=== PATIENT | female | born 1990 ===

== ENCOUNTER 2016-08-30 14:00 | Inpatient (IN) | payer OTHER ==
[2016-08-30] VITALS (19 sets, daily range): BP systolic 106–148; BP diastolic 52–77
[~2016-08-30] VITALS: Ht 160 cm; Wt 105.0 kg
[2016-08-30] MEDS ORDERED: PRENTAB9 PO (14:31)
[2016-08-30] MEDS ORDERED: LR 1,000 ML IV SCH (15:00)
[2016-08-30] MEDS ORDERED: LACTATED RINGER'S 1000 ML IV STA (15:29)
[2016-08-30 15:55] LABS: MEAN CORPUSCULAR HEMOGLOBIN 26.7 pg (27.0-33.0); MEAN CORPUSCULAR HGB CONC 32.3 g/dl (32.0-36.5); MEAN CORPUSCULAR VOLUME 82.6 fl (80.0-96.0); RED CELL DISTRIBUTION WIDTH 15.2 % (11.5-14.5); WHITE BLOOD COUNT 8.6 K/mm3 (4.0-10.0)
[2016-08-30] MEDS ORDERED: OXYTOCIN 30 UNITS IN 0.9% NaCl 500ML IV BAG (J2590) As Ordered ONE (16:03)
[2016-08-30 16:14] LABS: ALBUMIN 2.3 GM/DL (3.2-5.2); ALKALINE PHOSPHATASE 135 U/L (45-117); ALT/SGPT 14 U/L (12-78); ANION GAP 9 MEQ/L (8-16); AST/SGOT 13 U/L (15-37); BILIRUBIN,TOTAL 0.2 MG/DL (0.2-1.0); BLOOD UREA NITROGEN 10 MG/DL (7-18); CALCIUM LEVEL 8.6 MG/DL (8.5-10.1); CARBON DIOXIDE LEVEL 23 MEQ/L (21-32); CHLORIDE LEVEL 108 MEQ/L (98-107); CREATININE FOR GFR 0.62 MG/DL (0.55-1.02); GLOMERULAR FILTRATION RATE > 60.0 (>60); GLUCOSE, FASTING 76 MG/DL (70-105); SODIUM LEVEL 140 MEQ/L (136-145); TOTAL PROTEIN 5.6 GM/DL (6.4-8.2); URIC ACID 3.2 MG/DL (2.6-6.0)
[2016-08-30] MEDS ORDERED: OXYTOCIN DRIP 30 UNITS in APPROPRIATE DILUENT 1 EA IV SCH ×2 (16:15→19:51)
[2016-08-30] MEDS ORDERED: METHYLERGONOVINE MALEATE 0.2 MG/ML VIAL (J2210) IM PRN (20:00)
[2016-08-30] MEDS ORDERED: ACETAMINOPHEN 500 MG TAB PO PRN (20:00)
[2016-08-30] MEDS ORDERED: ONDANSETRON 4MG/2ML VIAL (J2405) IV PRN (20:00)
[2016-08-30] MEDS ORDERED: RHOGAM 300 MCG (1500 IU) INJ (J2790) IM SCH (20:00)
[2016-08-30] MEDS ORDERED: DIBUCAINE 1% OINTMENT 30GM TOP PRN (20:00)
[2016-08-30] MEDS ORDERED: IBUPROFEN 800 MG TAB PO PRN (20:00)
[2016-08-30] MEDS ORDERED: MEASLES,MUMPS,RUBELLA VACCINE INJ (MMR-II) (90707) SC SCH (20:00)
[2016-08-30] MEDS ORDERED: PROMETHAZINE 25 MG TAB PO PRN (20:00)
[2016-08-30] MEDS: DOCUSATE SODIUM 100 MG CAP PO SCH (22:03)
[2016-08-31 06:00] VITALS: BP 129/68
[2016-08-31] MEDS: PRENATAL VITAMIN TAB PO SCH (08:47)
[2016-08-31] MEDS: DOCUSATE SODIUM 100 MG CAP PO SCH ×2 (08:47→21:00)
[2016-08-31 18:00] VITALS: BP 127/72
[2016-08-31 21:30] VITALS: BP 127/72
[2016-09-01 05:25] VITALS: BP 119/58
[2016-09-01] MEDS ORDERED: MOTR200T44 PO (09:09)
[2016-09-01] MEDS ORDERED: ACET50TA PO (09:09)
[2016-09-01] MEDS: DOCUSATE SODIUM 100 MG CAP PO SCH (09:33)
[2016-09-01] MEDS: PRENATAL VITAMIN TAB PO SCH (09:33)
== END 2016-09-01 09:50 | disposition home or self-care (01) | DRG 775 ==
LOC: M LDI 14:00 → M OBS 21:30
PROVIDERS: ADMIT Obstetrics & Gynecology; ATTEND Obstetrics & Gynecology
PROC: 10E0XZZ Delivery of Products of Conception, External Approach (ICD-10-PCS; principal; 2016-08-30)
DX: O48.0 Post-term pregnancy (principal); Z37.0 Single live birth; Z3A.41 41 weeks gestation of pregnancy; O76 Abnormality in fetal heart rate and rhythm complicating labor and delivery